=== PATIENT | female | born 2005 | race Caucasian/White ===

== ENCOUNTER 2024-03-08 18:11 | Inpatient (IN) ==
--- NOTE | 2024-03-08 19:20 | XRay Report ---
XR hand LT min 3V routine CLINICAL HISTORY: trauma at base of thumb/thenar eminence COMPARISON: None FINDINGS: Alignment of the left hand is anatomic. There are no fractures. Carpal bones are intact. D istal left radius and ulna are intact. Joint spaces are preserved. IMPRESSION: No fracture or dislocation within the left hand. ACT 112: Negative or not required by law. Electronically signed by: Steve Darden M.D. 03/08/2024 7:19 PM
[2024-03-08 19:31] LABS: Appearance Urine Clear (Clear); Bacteria Urine Automated None Seen (None Seen); Bilirubin Urine Negative (Negative); Blood Urine Negative (Negative); Cast Urine Automated 0-2 /lpf (0-2); Color Urine Yellow; Glucose Urine UA Negative (Negative); Ketones Urine Negative (Negative); Leukocyte Esterase Urine 1+ (Negative); Nitrite Urine Negative (Negative); Protein Urine Negative (Negative); RBC Urine Automated 0-2 /hpf (0-2); Specific Gravity Urine 1.012 (1.000-1.030); Urobilinogen Urine Negative (Negative); WBC Urine Automated 0-5 /hpf (0-5); pH Urine 6.5 (4.5-7.5)
[2024-03-08 19:33] LABS: Basophils # (auto) 0.08 K/uL (0.00-0.20); Basophils % (auto) 0.7 %; Eosinophils # (auto) 0.08 K/uL (0.00-0.50); Eosinophils % (auto) 0.7 %; Hematocrit (blood only) 40.8 % (37.0-47.0); Hemoglobin 13.4 g/dl (12.0-16.0); Immature Granulocytes # (auto) 0.03 K/uL (0.01-0.20); Immature Granulocytes % (auto) 0.3 %; Lymphocytes # (auto) 1.73 K/uL (1.20-3.40); Lymphocytes % (auto) 15.9 %; Mean Corpuscular Hemoglobin 29.6 pg (25.0-34.0); Mean Corpuscular Hgb Conc 32.8 g/dL (32.0-36.0); Mean Corpuscular Volume 90.3 fL (80.0-100.0); Mean Platelet Volume 12.2 fL (9.4-12.4); Monocytes # (auto) 0.63 K/uL (0.11-0.59); Monocytes % (auto) 5.8 %; Neutrophils # (auto) 8.34 K/uL (1.40-6.50); Neutrophils % (auto) 76.6 %; Platelet Count 238 K/uL (130-400); RDW Coefficient of Variation 13.1 % (11.5-14.5); RDW Standard Deviation 42.7 fL (36.4-46.3); Red Blood Count 4.52 M/uL (4.20-5.40); White Blood Count 10.89 K/ul (4.8-10.8)
--- NOTE | 2024-03-08 19:37 | Emergency Department Note ---
Impression & Plan Depression, Suicidal ideation ED Provider Note ED Provider Note NAME: DENNIS MANZO AGE:19 SEX: Female : 2005 ARRIVES VIA: Private vehicle INFORMANT: Patient ED PROVIDER(s): Pamela Schulz DO CHIEF COMPLAINT: Mental health evaluation HPI: This is a 19-year-old female who presents emergency department for mental health evaluation. Patient states she did not feel safe being at home alone. She states periodically she would have episodes where she becomes upset and angry. Occasionally she will try to self-harm. She states she did try to throw her phone earlier when she was angry and injured her left thumb. She states she did have thoughts of wanting to hurt herself but they are now gone. She previously had thoughts of wanting to hurt others but those are now gone. Patient states she used to see psychiatry but was fired for missing too many appointments. She was supposed to be taking Paxil and Depakote but has been noncompliant. She denies any other recent illness or change in her overall health. Patient does see a therapist weekly. PAST MEDICAL HISTORY:See Below PAST SURGICAL HISTORY:See Below FAMILY HISTORY:See Below SOCIAL HISTORY:See Below HOME MEDICATIONS:See Below ALLERGIES:See Below VITALS:See Below PHYSICAL EXAMINATION: GENERAL: alert, well appearing, well nourished, no distress, non-toxic EYE EXAM: normal conjunctiva, PERRL and EOM's grossly intact OROPHARYNX: no exudate, no erythema, lips, buccal mucosa, and tongue normal and mucous membranes are moist NECK: supple, no nuchal rigidity, no adenopathy, non-tender LUNGS: Clear to auscultation. Normal chest wall mechanics, no w/r/r HEART: no murmurs, S1 normal and S2 normal ABDOMEN: abdomen soft, non-tender, normo-active bowel sounds, no masses, no rebound or guarding. BACK: Back is symmetrical on inspection and there is no deformity, no midline tenderness, no CVA tenderness. SKIN: no rashes, petechiae, orbruising UPPER EXTREMITIES: upper extremities are grossly normal. FROM, nml pulses b/l. Pain with palpation over the left thenar eminence, small area of evolving ecchymosis, patient able to oppose thumb with other fingers, no obvious deformity or malrotation, no pain with palpation along the dorsal aspect of the left hand, sensation intact and normal cap refill throughout left hand, no bony tenderness with palpation over the wrist LOWER EXTREMITIES: No pitting edema. FROM, nml pulses b/l. NEURO EXAM: Normal sensorium, cranial nerves II-XII grossly intact, normal speech, no facial droop,nogross weakness of arms, no gross weakness of legs. Gross sensation intact. No ataxia. Vital Signs: reviewed and remarkable Differential Diagnosis: mood disorder, suicidal ideation, anxiety, depression, substance abuse, toxidrome, infection, hypoglycemia, electrolyte abnormalities, ICH as well as others were considered. MEDICAL DECISION MAKING: This is a 19-year-old female presents emergency department stating she did not feel safe at home. She admitted to suicidal ideation earlier the day as well as difficulty controlling her anger. Patient does have a history of bipolar disorder and does see a therapist weekly. She was fired by her psychiatrist for missing too many appointments and admits to noncompliance with her medications. Patient evaluated by case management here after labs drawn and sent, urine collected per protocol for medical clearance. These are reassuring. An x-ray was also obtained at bedside interpreted by me of her left hand due to mild edema and evolving ecchymosis noted along the thenar eminence on the left. X- ray negative per my interpretation additionally. Patient ultimately referred to [facility] She was accepted, 201 signed by me. Consultation(s): 2100: Patient was seen and evaluated by case management referred to [facility] who came down and evaluated her. 201 signed by me. ER Treatment Provided: See below Diagnostics Interpreted By Me: -Laboratory studies: As stated above and show below. -Imaging studies: xr left hand: no fx/dislocation Triage Nursing Note Reviewed Prior/Outside Records Reviewed Past Med/Surg History Problem List (Updated 03/08/24 @ 20:30 by Pamela Schulz DO) Suicidal ideation (Acute) Depression (Acute) Social History Smoking Status: Never smoker Preferred Language: Swedish Feels Safe at Home: Yes Gender Identity: Female Allergies Allergies Allergy/AdvReac Type Severity Reaction Status Date / Time shellfish derived Allergy Unknown Verified 03/08/24 19:13 Home Meds Home Medications Medication Instructions Recorded Confirmed Depakote 500 mg PO DAILY 03/08/24 03/08/24 paroxetine HCl 20 mg tablet (Paxil) 20 mg PO DAILY 03/08/24 03/08/24 Results & Data (ED) Vital Signs Vital Signs - 24 hr 03/08/24 18:16 Temperature 36.6 C Temperature Source Temporal Artery Scan Pulse Rate 83 Respiratory Rate 20 Respiratory Effort / Characteristics Non-Labored Respiratory Depth Normal Blood Pressure 129/82 Blood Pressure Mean 97 Pulse Oximetry 99 Oxygen Delivery Method Room Air Sepsis Recent Fever Within 48 Hours No Sepsis New/Unexplained Change in Mental Status No Sepsis Action Taken by Nursing No Action Required Laboratory Data 03/08/24 19:02 03/08/24 19:02 Lab Results 03/08/24 03/08/24 Range/Units 18:35 19:02 WBC 10.89 H (4.8-10.8) K/ul RBC 4.52 (4.20-5.40) M/uL Hgb 13.4 (12.0-16.0) g/dl Hct 40.8 (37.0-47.0) % MCV 90.3 (80.0-100.0) fL MCH 29.6 (25.0-34.0) pg MCHC 32.8 (32.0-36.0) g/dL RDW Std Deviation 42.7 (36.4-46.3) fL RDW Coeff of Val 13.1 (11.5-14.5) % Plt Count 238 (130-400) K/uL MPV 12.2 (9.4-12.4) fL Immature Gran % (Auto) 0.3 % Neut % (Auto) 76.6 % Lymph % (Auto) 15.9 % [place] % (Auto) 5.8 % Eos % (Auto) 0.7 % Baso % (Auto) 0.7 % Neut # (Auto) 8.34 H (1.40-6.50) K/uL Lymph # (Auto) 1.73 (1.20-3.40) K/uL [place] # (Auto) 0.63 H (0.11-0.59) K/uL Eos # (Auto) 0.08 (0.00-0.50) K/uL Baso # (Auto) 0.08 (0.00-0.20) K/uL Immature Gran # (Auto) 0.03 (0.01-0.20) K/uL Sodium 139 (136-145) mmol/L Potassium 4.2 (3.5-5.1) mmol/L Chloride 105 (98-107) mmol/L Carbon Dioxide 26 (21-32) mmol/L Anion Gap 8 (3-11) BUN 11 (6-23) mg/dl Creatinine 0.77 (0.6-1.2) mg/dl Est Cr Clr Drug Dosing 87.9 ml/min eGFR 113.18 BUN/Creatinine Ratio 14.3 (10-20) Glucose 86 (70-99(Fasting)) mg/dl Calcium 9.4 (8.6-10.3) mg/dl Total Bilirubin 0.5 (0.2-1.0) mg/dl AST 17 (13-39) U/L ALT 9 (7-52) U/L Alkaline Phosphatase 72 (34-104) U/L Total Protein 7.7 (6.0-8.3) gm/dl Albumin 4.7 (3.4-5.0) gm/dl Globulin 3.0 (2.5-4.0) gm/dl Albumin/Globulin Ratio 1.6 (0.9-2) TSH 1.892 (0.300-4.500) uIu/ml HCG, Qual Negative (Negative) Urine Color Yellow Urine Appearance Clear (Clear) Urine pH 6.5 (4.5-7.5) Ur Specific [place] 1.012 (1.000-1.030) Urine Protein Negative (Negative) Urine Glucose (UA) Negative (Negative) Urine Ketones Negative (Negative) Urine Blood Negative (Negative) Urine Nitrite Negative (Negative) Urine Bilirubin Negative (Negative) Urine Urobilinogen Negative (Negative) Ur Leukocyte Esterase 1+ H (Negative) Urine WBC (Auto) 0-5 (0-5) /hpf Urine RBC (Auto) 0-2 (0-2) /hpf U Hyaline Cast (Auto) 0-2 (0-2) /lpf U Epithel Cells (Auto) 3-5 H (0-2) /hpf Urine Bacteria (Auto) None Seen (None Seen) Salicylates < 3.0 L (3.0-30) mg/dl Urine Opiates Screen Neg (Neg) Ur Methadone, Qual Neg (Neg) Urine Fentanyl Screen Neg (Neg) Acetaminophen < 3 L (10-30) ug/ml Urine Barbiturates Neg (Neg) Ur Phencyclidine (PCP) Neg (Neg) U Amphetamin/Meth Scrn Neg (Neg) MDMA (Ecstasy) Screen Neg (Neg) U Benzodiazepines Scrn Neg (Neg) Ur Cocaine Metabolite Neg (Neg) U Marijuana (THC) Screen Neg (Neg) Ethyl Alcohol mg/dL < 10.0 (<10.0) mg/dl SARS-CoV-2, RNA, NAAT NEGATIVE (NEGATIVE) Imaging Data Radiologist's Impression: Hand X-Ray 03/08/24 18:53 XR hand LT min 3V routine CLINICAL HISTORY: trauma at base of thumb/thenar eminence COMPARISON: None FINDINGS: Alignment of the left hand is anatomic. There are no fractures. Carpal bones are intact. Distal left radius and ulna are intact. Joint spaces are preserved. IMPRESSION: No fracture or dislocation within the left hand. ACT 112: Negative or not required by law. Electronically signed by: Steve Darden M.D. 03/08/2024 7:19 PM Discharge Plan Visit Data Chief Complaint: Mental Health Evaluation Stated Complaint: MENTAL HEALTH EVALUATION ED Provider: Pamela Schulz Discharge Problem: Depression, Suicidal ideation Forms Stand Alone Forms: [facility], Suicide Prevention Resources Prescriptions Prescriptions: No Action paroxetine HCl [Paxil] 20 mg Tablet 20 mg PO DAILY Depakote 500 mg 500 mg PO DAILY Referrals Referrals: PCP,NO [Physician] -
[2024-03-08 19:45] LABS: Albumin Globulin Ratio 1.6 (0.9-2); Albumin Level 4.7 gm/dl (3.4-5.0); BUN Creatinine Ratio 14.3 (10-20); Bilirubin,Total 0.5 mg/dl (0.2-1.0); Calcium 9.4 mg/dl (8.6-10.3); Creatinine Clr Calc Pharmacy 87.9 ml/min; Potassium 4.2 mmol/L (3.5-5.1); Total Protein 7.7 gm/dl (6.0-8.3)
[2024-03-08 19:46] LABS: Pregnancy Test, Serum Negative (Negative)
[2024-03-08 19:56] LABS: Acetaminophen < 3 ug/ml (10-30); Salicylate < 3.0 mg/dl (3.0-30)
[2024-03-08 20:01] LABS: Thyroid Stimulating Hormone 1.892 uIu/ml (0.300-4.500)
[2024-03-08 20:01] LABS: Amphetamines+Metham, Urine Neg (Neg); Barbiturates, Urine Neg (Neg); Benzodiazepine, Urine Neg (Neg); Cocaine, Urine Neg (Neg); Fentanyl, Urine Neg (Neg); MDMA (Ecstacy), Urine Neg (Neg); Marijuana, Urine Neg (Neg); Methadone, Urine Neg (Neg); Opiate, Urine Neg (Neg); Phencyclidine, Urine Neg (Neg)
[2024-03-08] MEDS ORDERED: BISMUTH SUBSALICYLATE 262 MG CHEW PO PRN (21:43)
[2024-03-08] MEDS ORDERED: ACETAMINOPHEN 325 MG TAB PO PRN (21:43)
[2024-03-08] MEDS ORDERED: MAGNESIUM HYDROXIDE SUSP 30 ML UDC PO PRN (21:43)
[2024-03-08] MEDS ORDERED: hydrOXYzine HCl 25 MG TAB PO PRN (21:43)
[2024-03-08] MEDS ORDERED: ALUMINUM/MAGNESIUM SUSP 30 ML UDC PO PRN (21:43)
[2024-03-08] MEDS ORDERED: SODIUM CHLORIDE 0.65% NA SOLN 45 ML (OCEAN) PRN (21:43)
--- NOTE | 2024-03-09 09:00 | History & Physical ---
Date of Service March 09, 2024 Impression / Recommendations Impression DENNIS MANZO is a 19-year-old woman and [employer] student who currently lives off campus with two roommates, has a history of borderline personality disorder, bipolar type II, VIVI and ADHD, and was admitted on 03/08/24 21:40 on a 201 voluntary commitment for SI and inability to safety plan for outside of the hospital. Diagnostically consistent with unspecified depression with differential including acute excerbation of borderline personality disorder with intensified suicidal ideation in context of feeling abandoned vs depression 2/2 BPAD type II and also seems to likely meet criteria for OCD and VIVI and reports history of ADHD and some symptoms of PTSD. Discussed medication treatment options in detail including mood stabilizers and SSRI/SNRI and Wellbutrin and clonidine. She was given medication print outs and we reviewed side effects, she wants to think about various options overnight before deciding on what medication/s to start. Overall I spent a total of 75 minutes for this admission including review of chart records, review of labwork, direct evaluation of the patient, counseling the patient, ordering medication, risk assessment, discussion with the psychiatric liason RN and documentation in the electronic health record. (1) Suicidal ideation: (2) Depression: (3) Borderline personality disorder: (4) Bipolar 2 disorder: (5) VIVI (generalized anxiety disorder): (6) Emotional lability: Plan 03/09/2024: The patient was admitted to the [facility] ([facility]) on q15 min checks (behavioral with suicide precautions) for safety. The patient will participate in group, recreational, and milieu therapies and will be offered additional individual and family sessions as clinically appropriate. -Raul BPD, Mood Disorder and Y-BOCS screening tools Inventory Assets Strengths: supportive roommates, resilient, willing to get treatment Needs: safety and stabilization, medication adjustment, additional coping skills, increased outpatient services Suicide Risk Level Suicide Risk Level: Moderate (q15 min suicide checks) (SI and emotional reactivity prior to admission, now lessening SI and feels safe in the hospital a nd able to ask for support) Risk Factors Assessment Male: No : Yes Do You Have Access To A Gun?: No Health Problems: No Mental Health Diagnoses: Yes Substance Use Disorders: No Previous Attempt: Yes Family History of Suicide: Yes Previous Psychiatric Hospitalization: No Hopelessness: No Protective Factors Assessment 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 Chief Complaint "I kind of freaked out when my boyfriend said it was too much pressure and he couldn't be there for me". History of Present Illness She presents for psychiatric admission for worsening depression and SI and felt "like I couldn't be alone" in the context of multiple psychosocial stressors including academic stress (on academic probation), recent breakup two weeks ago and feeling isolated with her roommates being away and her ex-boyfriend stating he could no longer be a support for her. She describes that yesterday "I kind of freaked out" with yelling, screaming, hitting the brannon/floor, and throwing stuff including her phone/shoes/can of shoe spray. She recalls feeling anger due to an argument with her ex-boyfriend after he came to visit but she felt that he was just coming to get his stuff not to "talk to me". She asked him to come back after he left with his stuff but he wouldn't and she recalls "I said some mean things" but notes it's hard for her to remember. Then she walked to his house and asked him to talk but he wouldn't and then she texted him and asked him to bring her to the hospital and he did. She notes "I don't think I'm depressed, I definitely have my moments but not constantly low". Rather she identifies feeling "upset". She notes that "when I get really angry or something happens I think this is it for me I have to kill myself". She notes that when feeling trapped the suicidal thoughts occur. She notes that "this feels like a long time coming", because "I have episodes like that a lot" and she assumed that at some point it would result in hospitalization. She deals with anxiety including shakiness, heart palpitations, and dizziness. She is currently prescribed psychiatric medications of Depakote 500mg (stopped about one year ago due to elevated LFTs) and Paxil 20mg but hasn't been taking them in about a year. Psychiatric ROS notable for history of symptoms of hypomania (last occurred about a year ago with decreased sleep), some PTSD symptoms (nightmares in the past, sometimes past trauma can be intrusive memories and can lower her mood), OCD (needs to move her body in certain ways or worries that someone will , recently had sense that if she didn't do something that her ex-boyfriend would in a car crash). History of eating disorder in the past (2019) and self-harm (consistent age [age], then intermittent since, last cut about 1.5 months ago). Denies any history of psychosis. Additional history per ED CM note on 03/08/2024: "Met with Dennis ([facility]) at bedside to complete psychiatric assessment. Dennis has a friend at bedside whom she consents to remaining in the room throughout the assessment. Dennis shares that she is here because she freaked out and does not feel safe. She describes herself having episodes like this in the past. She shares that her friend at bedside is actually her ex-boyfriend and they broke up about two weeks ago. Since then, they have still had contact with each other which gives Dennis hopes for reconciliation. She then struggles to handle her emotions when her hope to reconcile is not shared by her ex-boyfriend. Today, she had a break down where she threw her cell phone, injuring her hand. She describes history of significant impulsivity where she cannot control her emotions or her thoughts. In this midst of this incident, Dennis had significant suicidal ideation. She does not endorse a specific plan, but does not trust herself with her impulsivity. She has history of suicide attempt by overdose several years ago and did not seek treatment following that attempt. She does share tearfully that she worries that if she is not in the hospital she will act on impulse to kill herself. She states that she does not want to kill herself, but she feels like she has to in those moments. Dennis is diagnosed with Bipolar II and borderline personality disorder. She is supposed to be taking Depakote and Paxil. She reports that she has been noncompliant with these medications for some time. Last week, she took the medications for a few days inconsistently, hoping it would improve her symptoms. Prior to that she had not taken them in a while. She was summarily discharged from her psychiatric provider for missing too many appointments. She does receive weekly therapy. 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 She is not doing well in her classes and she contributes this to her worsening mental health symptoms. She describes her sleep as all over the place and states that she often doesnt feel the need to go to sleep. Her appetite is low and she hasnt been eating like she normally does. Her family is from the [facility] and she describes their family dynamic as complicated. She does share that her mother knows she is here. Dennis lives in an apartment off campus with several roommates whom she describes as acquaintances. She has fleeting thoughts of aggression but not directed to anyone in particular and she has not acted on these. She does endorse history of emotional abuse. Dennis denies hallucinations and homicidal ideation. She is willing to sign herself in for inpatient psychiatric treatment and is hopeful for placement on [address] [place] [address] so she can continue to coordinate with [employer] and not fall too behind on her studies. Medical clearance process explained pt did have left hand imaged to rule out any fracture from breaking her phone. X-ray is clear." Past Psychiatric History Current Psychiatric Diagnosis: Bipolar II, Borderline Personality Disorder Outpatient Services: therapist Brennan Merlos weekly, no current psychiatrist Previous Psych Admissions: none Do You Have Access To A Gun?: No History of Previous Suicide Attempt: Yes Describe Attempts in the Past: 2 years ago via overdose of Seroquel & Vistaril Past Medication Trials: Prozac (wasn't benefitting enough and couldn't go higher on the dose), Paxil, Luvox (helped for a decent amount of time but wasn't doing enough) Atomoxetine (didn't help with ADHD) Hydroxyzine Depakote Seroquel Past Head Trauma/Neuro History History of Concussion/Seizure: Yes concussion 1.5 years ago Allergies Allergy/AdvReac Type Severity Reaction Status Date / Time shellfish derived Allergy Unknown Verified 03/08/24 19:13 Home Medications Medication Instructions Recorded Confirmed Type Depakote 500 mg PO DAILY 03/08/24 03/08/24 History paroxetine HCl 20 mg tablet (Paxil) 20 mg PO DAILY 03/08/24 03/08/24 History Family History Family History of: Depression, Other Mood Disorders, Alcoholism/Drug Abuse (paternal alcohol use), Other-List under Comment (father in medical jail for narcissistic PD, bipolar type I, substance use for cocaine use), Bipolar and Suicide Completion (brother by suicide, overdosed on fentanyl ) Family Mental Health History Comment: paternal bipolar hx Alcohol History Hx of Alcohol Use Over the Past 12 Months: Yes (occasional alcohol use) AUDIT Total Score: 1 Social use a few times a month Smoking Use Have You Smoked or Used Tobacco Products in the Last 30 Days: No Smoking Status: Never smoker Substance History Hx of Prescription Med Misuse Over the Past 12 Months: No Hx of Over the Counter Med Misuse Over the Past 12 Months: No Hx of Inhalent Misuse Over the Past 12 Months: No Hx of Organic Substance Use Over the Past 12 Months: Yes (occasional marijuana use) Hx of Illegal Substances/Street Drug Use Over Past 12 Months: No (denies) Problems as a Result of Past Substance Use: None Identified Rare cannabis use, maybe once per month socially Personal History Living Arrangements: Apartment Childhood: Parents since she was 1.5 years old, father never had custody, no contact in many years. She has a "esteban relationship" with her mother. Brother . Highest Grade Completed: Some College Employment Status: [employer] Employed Marital Status: Single Number Of Children: n/a Beliefs That Will Affect Care: None Current Legal Problems: No Hx Legal Problems: No Hx Traumatic Life Events: Yes Patient History Social History Smoking Status: Never smoker Preferred Language: Luxembourgish Communication Ability: Effective Pairer Substandard Required: No Beliefs That Will Affect Care: None Feels Safe at Home: Yes Gender Identity: Female Assistive Devices: None Review of Systems Review of Systems: All systems reviewed & are unremarkable except as noted in HPI & below Physical Exam Psychiatric: Orientation: alert and oriented x 3 Apperance: appropriately dressed and appropriately groomed Eye Contact: good eye contact Motor Behavior: no abnormal motor movements Speech: normal rate/rhythm/volume of speech Affect: + depressed affect and + anxious affect Mood: + depressed mood and + anxious mood Thought Process: goal directed thought process Thought Content: reality based without delusions Suicidal Thoughts: denies suicidal plan and denies suicidal intent; + reports suicidal thoughts (intermittent) Homicidal Thoughts: denies homicidal thoughts Hallucinations: no auditory hallucinations and no visual hallucinations Cognition: recent memory grossly intact, remote memory grossly intact, attention grossly intact and language grossly intact Estimated Intelligence: consistent with education level Insight: + fair insight Judgment: + fair judgement Vital Signs (Past 24 Hours): Last Vital Signs Temp 36.9 C 03/09/24 06:52 Pulse 59 L 03/09/24 06:53 Resp 16 03/09/24 06:52 BP 109/74 03/09/24 06:53 Pulse Ox 99 03/08/24 22:29 O2 Del Method Room Air 03/08/24 22:29 Exam Statement: A physical exam was performed in the ED by Dr. Schulz for the purposes of medical clearance. I accept that physical as correct and adequate for the purposes of the inpatient physical exam. Results & Data ([facility]) Laboratory Results Laboratory Results - last 24 hr 03/08/24 03/08/24 18:35 19:02 WBC 10.89 H RBC 4.52 Hgb 13.4 Hct 40.8 MCV 90.3 MCH 29.6 MCHC 32.8 RDW Std Deviation 42.7 RDW Coeff of Val 13.1 Plt Count 238 MPV 12.2 Immature Gran % (Auto) 0.3 Neut % (Auto) 76.6 Lymph % (Auto) 15.9 Ada % (Auto) 5.8 Eos % (Auto) 0.7 Baso % (Auto) 0.7 Neut # (Auto) 8.34 H Lymph # (Auto) 1.73 Ada # (Auto) 0.63 H Eos # (Auto) 0.08 Baso # (Auto) 0.08 Immature Gran # (Auto) 0.03 Sodium 139 Potassium 4.2 Chloride 105 Carbon Dioxide 26 Anion Gap 8 BUN 11 Creatinine 0.77 Est Cr Clr Drug Dosing 87.9 eGFR 113.18 BUN/Creatinine Ratio 14.3 Glucose 86 Calcium 9.4 Total Bilirubin 0.5 AST 17 ALT 9 Alkaline Phosphatase 72 Total Protein 7.7 Albumin 4.7 Globulin 3.0 Albumin/Globulin Ratio 1.6 TSH 1.892 HCG, Qual Negative Urine Color Yellow Urine Appearance Clear Urine pH 6.5 Ur Specific [place] 1.012 Urine Protein Negative Urine Glucose (UA) Negative Urine Ketones Negative Urine Blood Negative Urine Nitrite Negative Urine Bilirubin Negative Urine Urobilinogen Negative Ur Leukocyte Esterase 1+ H Urine WBC (Auto) 0-5 Urine RBC (Auto) 0-2 U Hyaline Cast (Auto) 0-2 U Epithel Cells (Auto) 3-5 H Urine Bacteria (Auto) None Seen Salicylates < 3.0 L Urine Opiates Screen Neg Ur Methadone, Qual Neg Urine Fentanyl Screen Neg Acetaminophen < 3 L Urine Barbiturates Neg Ur Phencyclidine (PCP) Neg U Amphetamin/Meth Scrn Neg MDMA (Ecstasy) Screen Neg U Benzodiazepines Scrn Neg Ur Cocaine Metabolite Neg U Marijuana (THC) Screen Neg Ethyl Alcohol mg/dL < 10.0 SARS-CoV-2, RNA, NAAT NEGATIVE Current Inpatient Medications Current Inpatient Medications: Current Inpatient Medications Acetaminophen (Acetaminophen 325 Mg Tab) 650 mg PO Q4H PRN PRN Reason: Headache or Minor Fever Stop: 04/07/24 21:42 Al Hydrox/Mg Hydrox/Simethicone (Aluminum/Magnesium Susp 30 Ml Udc) 30 ml PO Q4H PRN PRN Reason: GI Upset Stop: 04/07/24 21:42 Bismuth Subsalicylate (Bismuth Subsalicylate 262 Mg Chew) 2 tab PO Q30M PRN PRN Reason: Loose Stool/Diarrhea Stop: 04/07/24 21:42 Hydroxyzine HCl (Hydroxyzine Hcl 25 Mg Tab) 50 mg PO HSZ PRN PRN Reason: Insomnia Stop: 04/07/24 21:42 Hydroxyzine HCl (Hydroxyzine Hcl 25 Mg Tab) 25 mg PO Q4H PRN PRN Reason: Anxiety Stop: 04/07/24 21:42 Magnesium Hydroxide (Magnesium Hydroxide Susp 30 Ml Udc) 30 ml PO DAILY PRN PRN Reason: Constipation Stop: 04/07/24 21:42 Sodium Chloride (Sodium Chloride 0.65% Na Soln 45 Ml ([place])) 1 - 2 sprays NA PRN PRN PRN Reason: Nasal Dryness/Congestion Stop: 04/07/24 21:42
[2024-03-09] MEDS: INFLUENZA VACC TS2024-25(6m+)/PF (IIV3) 0.5mL Syr IM ONE (14:22)
[2024-03-09] MEDS: hydrOXYzine HCl 25 MG TAB PO PRN (22:43)
--- NOTE | 2024-03-10 08:54 | Psychiatric Progress Note ---
Date of Service March 10, 2024 Impression / Recommendations Impression DENNIS MANZO is a 19-year-old woman and [employer] student who currently lives off campus with two roommates, has a history of borderline personality disorder, bipolar type II, VIVI and ADHD, and was admitted on 03/08/24 21:40 on a 201 voluntary commitment for SI and inability to safety plan for outside of the hospital. Diagnostically consistent with unspecified depression with differential including acute exacerbation of borderline personality disorder with intensified suicidal ideation in context of feeling abandoned vs depression 2/2 BPAD type II and also seems to likely meet criteria for OCD and VIVI and reports history of ADHD and some symptoms of PTSD. A: Mood improving, still struggling with end of relationship with ex-boyfriend they are now apparently trying to navigate being friends and she would like to have her support meeting with him. Discussed screening questionnaires consistent with BPD, BPAD type II and OCD with various obsessions and compulsions including aggressive/contamination/sexual/hoarding/miscellaneous and checking and repeating compulsions as well as miscellaneous. Discussed medication treatment options in detail. Discussed risks, benefits and alternatives. Patient would like to start and consented to lamictal for mood stabilization for BPAD type II and sertraline for anxiety/PTSD/hx depression. Reviewed side effects including but not limited to: GI, MORRISON, sexual side effects, potential for hypomania/komal especially without effective dose of mood stabilizer and counseled on black box warning of potential for emergence of or increased SI and need to let staff know should this occur or should they feel unsafe. Also discussed importance of seeking emergency care following discharge if this side effect occurs in the future; potential for Fernandez/Luiz syndrome and fatal rash, need for slow titration and consistent use with lamictal. Recommend DBT IOP which she's open to if her insurance is in network. Overall, I spent a total of 45 minutes on this case including meeting with the patient, reviewing the chart, nursing report, multidisciplinary team meeting, orders, and documentation. (1) Suicidal ideation: (2) Depression: (3) Borderline personality disorder: (4) Bipolar 2 disorder: (5) VIVI (generalized anxiety disorder): (6) Emotional lability: (7) Obsessive compulsive disorder: Plan 03/10/2024: -Start sertraline 25mg daily -Start lamictal 25mg HS -Exploring IOP DBT option for after discharge 03/09/2024: The patient was admitted to the [facility] ([facility] inpatient mental health unit) on q15 min checks (behavioral with suicide precautions) for safety. The patient will participate in group, recreational, and milieu therapies and will be offered additional individual and family sessions as clinically appropriate. -Raul BPD, Mood Disorder and Y-BOCS screening tools Inventory Assets Strengths: supportive roommates, resilient, willing to get treatment Needs: safety and stabilization, medication adjustment, additional coping skills, increased outpatient services Suicide Risk Level Suicide Risk Level: Moderate (q15 min suicide checks) (SI and emotional reactivity prior to admission, now denies SI, mood improving and feels safe in the hospital and able to ask for support) Risk Factors Assessment Male: No : Yes Do You Have Access To A Gun?: No Health Problems: No Mental Health Diagnoses: Yes Substance Use Disorders: No Previous Attempt: Yes Family History of Suicide: Yes Previous Psychiatric Hospitalization: No Hopelessness: No Protective Factors Assessment Employed: Yes (student and works parts washer) Interval History Identifying Information DENNIS MANZO is a 19-year-old woman and [employer] student who currently lives off campus with two roommates, has a history of borderline personality disorder, bipolar type II, VIVI and ADHD, and was admitted on 03/08/24 21:40 on a 201 voluntary commitment for SI and inability to safety plan for outside of the hospital. Chief Complaint "I have a few more questions about them". Review of Systems Sleep Information Total Hours of Sleep: 5.5 Meal Information Percent Meal Consumed - Breakfast: 100 Percent Meal Consumed - Lunch: 100 Percent Meal Consumed - Dinner: 75 Subjective Subjective Patient was seen & assessed and interval progress reviewed with treatment team nursing and social work. Attending groups, reported feeling more hopeful, engaging with peers. Overheard talking to ex-boyfriend on the phone last evening with some statements of externalizing blame to him for the reason for her hospitalization and mood decline with SI. Today reports her mood is improving. She spent time reviewing print outs about medication side effects for all the potential options we discussed. Discussed these further and she wants to start medication. She is hopeful her ex-boyfriend is going to visit [facility] as they plan to move forward as friends. Discussed option for outpatient IOP with DBT focus, she's open to this. Reviewed screening questionnaires together. Physical Exam Psychiatric Orientation: alert and oriented x 3 Apperance: appropriately dressed and appropriately groomed Eye Contact: good eye contact Motor Behavior: no abnormal motor movements Speech: normal rate/rhythm/volume of speech Affect: + constricted affect Mood: + anxious mood Thought Process: goal directed thought process Thought Content: reality based without delusions Suicidal Thoughts: denies suicidal thoughts, denies suicidal plan and denies suicidal intent Homicidal Thoughts: denies homicidal thoughts Hallucinations: no auditory hallucinations and no visual hallucinations Cognition: recent memory grossly intact, remote memory grossly intact, attention grossly intact and language grossly intact Estimated Intelligence: consistent with education level Insight: + fair insight Judgment: + limited judgement Vital Signs (Past 24 Hours) Last Vital Signs Temp 36.9 C 03/10/24 06:46 Pulse 78 03/10/24 06:46 Resp 16 03/10/24 06:46 BP 91/51 L 03/10/24 06:46 Pulse Ox 99 03/08/24 22:29 O2 Del Method Room Air 03/08/24 22:29 Results & Data ([facility]) Current Inpatient Medications Current Inpatient Medications: Current Inpatient Medications Acetaminophen (Acetaminophen 325 Mg Tab) 650 mg PO Q4H PRN PRN Reason: Headache or Minor Fever Stop: 04/07/24 21:42 Al Hydrox/Mg Hydrox/Simethicone (Aluminum/Magnesium Susp 30 Ml Udc) 30 ml PO Q4H PRN PRN Reason: GI Upset Stop: 04/07/24 21:42 Bismuth Subsalicylate (Bismuth Subsalicylate 262 Mg Chew) 2 tab PO Q30M PRN PRN Reason: Loose Stool/Diarrhea Stop: 04/07/24 21:42 Hydroxyzine HCl (Hydroxyzine Hcl 25 Mg Tab) 50 mg PO HSZ PRN PRN Reason: Insomnia Stop: 04/07/24 21:42 Last Admin: 03/09/24 22:43 Dose: 50 mg Hydroxyzine HCl (Hydroxyzine Hcl 25 Mg Tab) 25 mg PO Q4H PRN PRN Reason: Anxiety Stop: 04/07/24 21:42 Magnesium Hydroxide (Magnesium Hydroxide Susp 30 Ml Udc) 30 ml PO DAILY PRN PRN Reason: Constipation Stop: 04/07/24 21:42 Sodium Chloride (Sodium Chloride 0.65% Na Soln 45 Ml ([place])) 1 - 2 sprays NA PRN PRN PRN Reason: Nasal Dryness/Congestion Stop: 04/07/24 21:42 Mental Health & Subst Abuse Tx Therapist Name of Therapist: Brennan Landeros Primer Powder Blender Wet Name of Primer Powder Blender Wet: N/A
[2024-03-10] MEDS: SERTRALINE HCL 50 MG TABLET PO SCH (12:40)
[2024-03-10] MEDS: lamoTRIgine 25 MG TAB PO SCH (21:47)
--- NOTE | 2024-03-11 09:42 | Discharge Summary ---
Date of Service March 11, 2024 History of Present Illness She presents for psychiatric admission for worsening depression and SI and felt "like I couldn't be alone" in the context of multiple psychosocial stressors including academic stress (on academic probation), recent breakup two weeks ago and feeling isolated with her roommates being away and her ex-boyfriend stating he could no longer be a support for her. She describes that yesterday "I kind of freaked out" with yelling, screaming, hitting the brannon/floor, and throwing stuff including her phone/shoes/can of shoe spray. She recalls feeling anger due to an argument with her ex-boyfriend after he came to visit but she felt that he was just coming to get his stuff not to "talk to me". She asked him to come back after he left with his stuff but he wouldn't and she recalls "I said some mean things" but notes it's hard for her to remember. Then she walked to his house and asked him to talk but he wouldn't and then she texted him and asked him to bring her to the hospital and he did. She notes "I don't think I'm depressed, I definitely have my moments but not constantly low". Rather she identifies feeling "upset". She notes that "when I get really angry or something happens I think this is it for me I have to kill myself". She notes that when feeling trapped the suicidal thoughts occur. She notes that "this feels like a long time coming", because "I have episodes like that a lot" and she assumed that at some point it would result in h ospitalization. She deals with anxiety including shakiness, heart palpitations, and dizziness. She is currently prescribed psychiatric medications of Depakote 500mg (stopped about one year ago due to elevated LFTs) and Paxil 20mg but hasn't been taking them in about a year. Psychiatric ROS notable for history of symptoms of hypomania (last occurred about a year ago with decreased sleep), some PTSD symptoms (nightmares in the past, sometimes past trauma can be intrusive memories and can lower her mood), OCD (needs to move her body in certain ways or worries that someone will , recently had sense that if she didn't do something that her ex-boyfriend would in a car crash). History of eating disorder in the past (2019) and self-harm (consistent age [age], then intermittent since, last cut about 1.5 months ago). Denies any history of psychosis. Additional history per ED CM note on 03/08/2024: "Met with Martha ([facility]) at bedside to complete psychiatric assessment. Martha has a friend at bedside whom she consents to remaining in the room throughout the assessment. Martha shares that she is here because she freaked out and does not feel safe. She describes herself having episodes like this in the past. She shares that her friend at bedside is actually her ex-boyfriend and they broke up about two weeks ago. Since then, they have still had contact with each other which gives Martha hopes for reconciliation. She then struggles to handle her emotions when her hope to reconcile is not shared by her ex-boyfriend. Today, she had a break down where she threw her cell phone, injuring her hand. She describes history of significant impulsivity where she cannot control her emotions or her thoughts. In this midst of this incident, Martha had significant suicidal ideation. She does not endorse a specific plan, but does not trust herself with her impulsivity. She has history of suicide attempt by overdose several years ago and did not seek treatment following that attempt. She does share tearfully that she worries that if she is not in the hospital she will act on impulse to kill herself. She states that she does not want to kill herself, but she feels like she has to in those moments. Martha is diagnosed with Bipolar II and borderline personality disorder. She is supposed to be taking Depakote and Paxil. She reports that she has been noncompliant with these medications for some time. Last week, she took the medications for a few days inconsistently, hoping it would improve her symptoms. Prior to that she had not taken them in a while. She was summarily discharged from her psychiatric provider for missing too many appointments. She does receive weekly therapy. 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 She is not doing well in her classes and she contributes this to her worsening mental health symptoms. She describes her sleep as all over the place and states that she often doesnt feel the need to go to sleep. Her appetite is low and she hasnt been eating like she normally does. Her family is from the [place] [facility] area and she describes their family dynamic as complicated. She does share that her mother knows she is here. Martha lives in an apartment off campus with several roommates whom she describes as acquaintances. She has fleeting thoughts of aggression but not directed to anyone in particular and she has not acted on these. She does endorse history of emotional abuse. Martha denies hallucinations and homicidal ideation. She is willing to sign herself in for inpatient psychiatric treatment and is hopeful for placement [facility] [address] so she can continue to coordinate with [employer] and not fall too behind on her studies. Medical clearance process explained pt did have left hand imaged to rule out any fracture from breaking her phone. X-ray is clear." Physical Exam Vital Signs (Past 24 Hours) Last Vital Signs Temp 36.2 C L 03/11/24 06:00 Pulse 71 03/11/24 06:01 Resp 18 03/11/24 06:00 BP 98/51 L 03/11/24 06:01 Pulse Ox 99 03/08/24 22:29 O2 Del Method Room Air 03/08/24 22:29 Principal Diagnosis Unspecified Depressive Disorder, Borderline Personality Disorder Psychiatric Data See daily stay summary. In short, patient was engaged with the social/therapeutic milieu of the unit, safety was maintained and the patient was cooperative with care. Medication changes included initiation of lamictal 25mg HS for mood stabilization, sertraline 25mg for depression and anxiety and Vistaril 50mg HS prn for anxiety/insomnia and they tolerated this well. A support session was held and safety plan was completed prior to discharge. They participated in safety planning and in discussions about ways to seek support and recognizing warning signs and utilizing coping skills. Reviewed ways to have their safety plan and contacts easily available should thoughts of SI re-emerge in the future. Reviewed importance of seeking emergency care should SI intensify, worsen or should they feel unsafe in the future which they agree to do. On the day of discharge they stated their mood was "good" and remained future-oriented including seeing her cat and engaging in aftercare appointments for psychiatry, DBT IOP therapy and case management. Day of Discharge Assessment Today the patient voices readiness for discharge. They note improvement in mood and anxiety. They deny thoughts of harm to self or others. Thoughts are organized and they are clinically improved from admission. There is no evidence of psychosis. They improved in the hospital with support and medication adjustments. They agree to take medications as prescribed and keep follow-up appointments. At the time of the discharge they are deemed to be stable and appropriate for outpatient level of care. They are not deemed to be at imminent risk of harm to self or others. They are aware of emergency and crisis services. Knows to call 911 or go to nearest emergency care center if in a crisis which cannot be handled as an outpatient. Suicide risk assessment: Acute risk is low given improvement in mood and denial of SI, lack of access to lethal means, improvement in sleep hopefulness. Chronic risk is moderate given some non-modifiable risk factors: psychiatric co-morbid diagnoses, periods of impulsivity, prior attempt hx self-harm, emotional reactivity, mood disorder, cluster B personality disorder, childhood trauma, family history of by suicide but also with protective factors including employed, student ,sense of responsibility to family and social supports, outpatient care in place ,positive coping skills ,positive problem solving ,willingness to engage with treatment , self-observation. Counseled on ways to reduce acute and chronic risk including engaging with outpatient providers, using safety plan if needed, utilizing supports, taking medication, working on DBT skills in new outpatient IOP and using coping skills. Modifiable risk factors of SI and depression were addressed during hospitalization through development of new coping skills, support meeting, safety planning, and medication adjustments. Discharge physical exam: See admission H&P, MSE per above and day of discharge summary. Overall, I spent a total of 35 minutes on this case including meeting with the patient, reviewing the chart, nursing report, multidisciplinary team meeting, discharge orders, anticipatory planning, safety planning, risk assessment and documentation. Transition of Care Transition Of Care Record: was reviewed with the patient Advance Directives Advance Directives Information Provided: No Advance Directives: No Mental Health Advance Directive: No Advance Directives on File: No Living Will: No Power of Silk Finisher: No Advance Directives Reason:: Declines as Mental Health Visit. 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) Discharge Data Lab Results 03/08/24 03/08/24 18:35 19:02 WBC 10.89 H RBC 4.52 Hgb 13.4 Hct 40.8 MCV 90.3 MCH 29.6 MCHC 32.8 RDW Std Deviation 42.7 RDW Coeff of Val 13.1 Plt Count 238 MPV 12.2 Immature Gran % (Auto) 0.3 Neut % (Auto) 76.6 Lymph % (Auto) 15.9 Mclennan % (Auto) 5.8 Eos % (Auto) 0.7 Baso % (Auto) 0.7 Neut # (Auto) 8.34 H Lymph # (Auto) 1.73 Mclennan # (Auto) 0.63 H Eos # (Auto) 0.08 Baso # (Auto) 0.08 Immature Gran # (Auto) 0.03 Sodium 139 Potassium 4.2 Chloride 105 Carbon Dioxide 26 Anion Gap 8 BUN 11 Creatinine 0.77 Est Cr Clr Drug Dosing 87.9 eGFR 113.18 BUN/Creatinine Ratio 14.3 Glucose 86 Calcium 9.4 Total Bilirubin 0.5 AST 17 ALT 9 Alkaline Phosphatase 72 Total Protein 7.7 Albumin 4.7 Globulin 3.0 Albumin/Globulin Ratio 1.6 TSH 1.892 HCG, Qual Negative Urine Color Yellow Urine Appearance Clear Urine pH 6.5 Ur Specific [place] 1.012 Urine Protein Negative Urine Glucose (UA) Negative Urine Ketones Negative Urine Blood Negative Urine Nitrite Negative Urine Bilirubin Negative Urine Urobilinogen Negative Ur Leukocyte Esterase 1+ H Urine WBC (Auto) 0-5 Urine RBC (Auto) 0-2 U Hyaline Cast (Auto) 0-2 U Epithel Cells (Auto) 3-5 H Urine Bacteria (Auto) None Seen Salicylates < 3.0 L Urine Opiates Screen Neg Ur Methadone, Qual Neg Urine Fentanyl Screen Neg Acetaminophen < 3 L Urine Barbiturates Neg Ur Phencyclidine (PCP) Neg U Amphetamin/Meth Scrn Neg MDMA (Ecstasy) Screen Neg U Benzodiazepines Scrn Neg Ur Cocaine Metabolite Neg U Marijuana (THC) Screen Neg Ethyl Alcohol mg/dL < 10.0 SARS-CoV-2, RNA, NAAT NEGATIVE Hospital Course (1) Suicidal ideation: (2) Depression: (3) Borderline personality disorder: (4) Bipolar 2 disorder: (5) VIVI (generalized anxiety disorder): (6) Emotional lability: (7) Obsessive compulsive disorder: Plan 03/11/2024: Tolerating medications well. Feels safe and desires discharge. 03/10/2024: -Start sertraline 25mg daily -Start lamictal 25mg HS -Exploring IOP DBT option for after discharge 03/09/2024: The patient was admitted to the [facility] ([facility] mental health unit) on q15 min checks (behavioral with suicide precautions) for safety. The patient will participate in group, recreational, and milieu therapies and will be offered additional individual and family sessions as clinically appropriate. -Raul BPD, Mood Disorder and Y-BOCS screening tools Mental Health & Subst Abuse Tx Psychiatrist Name of Psychiatrist: Ethan Hutchison IN PERSON Psychiatrist's Date Of Appointment With Psychiatric Provider: 03/25/24 Time of Appointment with Psychiatrist: 1:15 PM Please Ignore Any Texts you get with a different time. Psychiatric Appointment Comment: [address] [place] [address] Please Bring ID and Insurance Therapist Name of Therapist: [facility] -Virtual Therapist's Date of Therapist Appointment: 03/12/24 Time of Therapist Appointment: 12pm Therapy Appointment Comment: Link will be sent to your email for the intake appt Maintenance Planner Name of Maintenance Planner: [facility] - outside sales account manager Phone Number for Maintenance Planner: [phone] Case Management Appointment Comment: outside sales account manager will contact you to schedule appt after discharge Post Discharge Appointments Other #1: Name of Aftercare Appointment: Brennan Landeros Phone Number of Aftercare Appointment: [phone] Aftercare Appointment Comment: contact therapist after [facility] IOP is completed to puneet next appt Discharge Plan Discharge Items Patient Disposition: Home - Self-Care Reason For Visit: UNSPECIFIED DEPRESSIVE DISORDER Discharge Diagnosis: Unspecified Depressive Disorder, Borderline Personality Disorder Activity: Resume your previous activity Non-emergency contact: Primary Care Provider, Psychiatrist, Therapist and Fleet Maintenance Foreman Call non-emergency contact if: you have any medication questions and your symptoms worsen Follow-up/Referrals: [facility] [Primary Care Provider] - Diet: Regular Addtl Attending Provider Instructions: Optional mobile apps: -Suicide safety plan -Virtual Hope Box SPECIAL CARE INSTRUCTIONS: 1. Follow through with your scheduled aftercare appointments. If unable to keep an appointment, please call to reschedule. 2. Take your medication only as prescribed. Medication should not be changed or stopped without the approval of your doctor. In the event of worsening symptoms or concerns about side effects, contact your doctor immediately. 3. Utilize new healthy coping skills, anger management skills, and stress management skills learned during your hospitalization. Journal feelings and process them with a support person. Identify stressors or situations that may result in relapse, deterioration or inappropriate behaviors and develop a plan to deal with those issues. 4. If your coping skills are ineffective and you are in crisis, contact your outpatient providers for direction. If unable to reach your providers, please call the [facility] CRISIS LINE AT , go to the [facility] walk-in center at [address] [place] [address] A, [place], or go to the closest Emergency Room. 5. Avoid alcohol and un-prescribed drugs. 6. You have been provided with the Mental Health Advance Directives Pamphlet for your review. 7. Your condition is stable for discharge to outpatient level of care, but recovery is an ongoing process. Ifthoughts to harm yourself or others return, follow the safety plan developed during your stay. Planning for a safe return home includes securing weapons. Our treatment team recommends weaponsbe removed from the home until your outpatient provider reassesses your progress. In rare cases where the items themselvescannot be removed, guns and ammunitionshould be secured separatelyand keys stored by a reliable personoutside of the home. If you were admitted on an involuntary commitment, the police or other legal authorities may be involved in this process. AFTERCARE APPOINTMENTS: * Please call your insurance company prior to your scheduled appointment to confirm your aftercare providers are covered. Take your insurance information to your appointments. WHO TO CALL AND WHEN: Medical Emergencies: For questions or emergencies related to your hospital stay, please contact the Inpatient Behavioral Health Unit at [phone]. A unloading checker is on-call 03/12 for the Behavioral Health Unit for emergencies At any time you feel your situation is an emergency, you may also call 911 immediately. National Crisis hotline: 980 Pending Studies at Discharge: No Stand-Alone Forms: My [facility] [employer] Medications and DC Order Prescriptions: New lamotrigine [Lamictal] 25 mg Tablet 25 mg PO HS 30 Days Qty: 30 0RF hydroxyzine HCl 50 mg tablet 50 mg PO HS PRN (Reason: insomnia/anxiety) 30 Days Qty: 30 0RF sertraline 25 mg tablet 25 mg PO DAILY 30 Days Qty: 30 0RF Discontinued paroxetine HCl [Paxil] 20 mg Tablet 20 mg PO DAILY Depakote 500 mg 500 mg PO DAILY Discharge Orders: Discharge Order (Routine); Ordered 03/11/24 Ordered By: Geovanna Che Admission Data Admit Date/Time: 03/08/24 21:40 Attending Provider: Geovanna Che Admit Provider: Geovanna Che Primary Care Provider: [facility] Coding Level of Care Code 78555 D/C day mgmt > 30 min Diagnoses Suicidal ideation R45.851 Depression F32.A Borderline personality disorder F60.3 Bipolar 2 disorder F31.81 VIVI (generalized anxiety disorder) F41.1 Emotional lability R45.86 Obsessive compulsive disorder F42.9
== END 2024-03-11 10:47 | disposition home or self-care (01) | DRG 881 ==
LOC: ED 18:11 → 3S 21:40